=== PATIENT | male | born 1955 | race Caucasian/White ===

== ENCOUNTER 2022-02-01 11:48 | Inpatient (IN) ==
[2022-02-01 13:08] LABS: Basophils % 0.3 %; Eosinophils % 0.6 %; Hematocrit 20.5 % (37.5-50.1); Hemoglobin 7.1 g/dL (12.9-16.9); Immature Granulocytes % 0.9 % (0-4); Lymphocytes # 0.6 K/mcL (0.6-4.6); Lymphocytes % 17.3 %; Mean Corpuscular HGB Conc 34.6 g/dL (31.6-35.5); Mean Corpuscular Hemoglobin 31.1 pg (28.0-33.3); Mean Corpuscular Volume 89.9 fL (83.0-100.0); Mean Platelet Volume 11.1 fL (9.4-12.4); Monocytes # 0.4 K/mcL (0.0-1.3); Monocytes % 11.6 %; Neutrophils # 2.4 K/mcL (1.6-8.9); Platelet Count 142 K/mcL (140-400); Red Blood Count 2.28 M/mcL (4.19-5.50); Red Cell Distribution Width 15.2 % (11.5-14.5); Segmented Neutrophils % 69.3 %; White Blood Count 3.5 K/mcL (4.3-11.1)
[2022-02-01 13:58] LABS: Albumin 3.9 g/dL (3.5-5.7); Albumin/Globulin Ratio 1.6 (1.1-2.2); Bilirubin,Total 1.2 mg/dL (0.3-1.0); Calcium 8.2 mg/dL (8.6-10.3); Globulin 2.5 g/dL (2.4-3.5); Potassium 4.5 mEq/L (3.5-5.1); Total Protein 6.4 g/dL (6.4-8.9)
[2022-02-01 13:59] LABS: Adenovirus Not Detected (Not Detect); Bordetella Pertussis Not Detected (Not Detect); Chlamydophila pneumoniae Not Detected (Not Detect); Coronavirus 229E Not Detected (Not Detect); Coronavirus HKU1 Not Detected (Not Detect); Coronavirus NL63 Not Detected (Not Detect); Coronavirus OC43 Not Detected (Not Detect); Human Metapneumovirus Not Detected (Not Detect); Human Rhinovirus/Enterovirus Not Detected (Not Detect); Influenza A Subtype 2009 H1 Not Detected (Not Detect); Influenza B Not Detected (Not Detect); Mycoplasma pneumoniae Not Detected (Not Detect); Parainfluenza Virus 1 Not Detected (Not Detect); Parainfluenza Virus 2 Not Detected (Not Detect); Parainfluenza Virus 3 Not Detected (Not Detect); Parainfluenza Virus 4 Not Detected (Not Detect); Respiratory Syncytial Virus Not Detected (Not Detect)
[2022-02-01 14:00] LABS: SARS-CoV-2 DETECTED (Not Detect)
[2022-02-01 14:55] LABS: Bilirubin,Urine Negative (Negative); Blood,Urine Small (Negative); Clarity,Urine Clear (Clear); Color,Urine Colorless (Yellow); Glucose,Urine (UA) >=1000 mg/dL (Normal); Ketones,Urine Negative (Negative); Leukocyte Esterase,Urine Negative (Negative); Nitrite,Urine Negative (Negative); Protein,Urine 200 mg/dL (Neg-Trace); RBC,Urine 0-3 per hpf (0-3); Specific Gravity,Urine 1.022 (1.010-1.025); Urobilinogen,Urine Normal (Normal)
[2022-02-01] MEDS ORDERED: Acetaminophen 325 MG TABLET PO PRN (16:49)
[2022-02-01] MEDS ORDERED: Ondansetron 4 MG/2 ML VIAL IVP PRN (16:49)
[2022-02-01] MEDS ORDERED: Naloxone 0.4 MG/ML INJ IVP PRN (16:49)
[2022-02-01] MEDS ORDERED: 0.9 % Sodium Chloride 1,000 ML IVC SCH (17:00)
[2022-02-01] MEDS ORDERED: *HR* Dextrose 50 % in Water (Syg) 50 ML SYRINGE IVP PRN (17:04)
[2022-02-01] MEDS ORDERED: D5% in Water 1,000 ML IVC PRN (17:04)
[2022-02-01] MEDS ORDERED: Dextrose Gel 15 GM/37.5 ML TUBE PO PRN ×2 (17:04)
[2022-02-01] MEDS: Insulin LISPRO 300 UNITS/3 ML VIAL SUBQ SCH ×2 (18:37→20:59)
[2022-02-01] MEDS: Insulin NPH 100 UNIT/ML (x5UNIT) SUBQ SCH (20:58)
[2022-02-01] MEDS: Valsartan 80 MG TABLET PO SCH (21:02)
[2022-02-01] MEDS: Primidone 50 MG TABLET PO SCH (21:02)
[2022-02-01] MEDS: Gabapentin 400 MG CAPSULE PO SCH (21:02)
[2022-02-01] MEDS: allopurinoL 100 MG TABLET PO SCH (21:02)
[2022-02-01] MEDS: Azithromycin 500 MG in 0.9 % Sodium Chloride 250 ML IVPB SCH (21:13)
[2022-02-01] MEDS: cefTRIAXone 1,000 MG in 0.9 % Sodium Chloride 10 ML IVP SCH (21:14)
[2022-02-02] MEDS: Gabapentin 400 MG CAPSULE PO SCH ×2 (08:35→20:40)
[2022-02-02] MEDS: allopurinoL 100 MG TABLET PO SCH ×2 (08:35→20:39)
[2022-02-02] MEDS: Insulin NPH 100 UNIT/ML (x5UNIT) SUBQ SCH ×2 (08:35→22:08)
[2022-02-02] MEDS: Insulin LISPRO 300 UNITS/3 ML VIAL SUBQ SCH ×6 (08:37→21:49)
[2022-02-02 16:00] LABS: Hematocrit 20.6 % (37.5-50.1); Hemoglobin 6.9 g/dL (12.9-16.9); Mean Corpuscular HGB Conc 33.5 g/dL (31.6-35.5); Mean Corpuscular Hemoglobin 30.5 pg (28.0-33.3); Mean Corpuscular Volume 91.2 fL (83.0-100.0); Mean Platelet Volume 10.7 fL (9.4-12.4); Platelet Count 117 K/mcL (140-400); Red Blood Count 2.26 M/mcL (4.19-5.50); Red Cell Distribution Width 15.4 % (11.5-14.5); White Blood Count 3.4 K/mcL (4.3-11.1)
[2022-02-02 16:12] LABS: Albumin 3.7 g/dL (3.5-5.7); Albumin/Globulin Ratio 1.4 (1.1-2.2); Bilirubin,Direct 0.2 mg/dL (0.0-0.2); Bilirubin,Indirect 0.7 mg/dL (0.0-1.0); Bilirubin,Total 0.9 mg/dL (0.3-1.0); Calcium 7.9 mg/dL (8.6-10.3); Globulin 2.7 g/dL (2.4-3.5); Magnesium 1.4 mg/dL (1.6-2.6); Potassium 3.6 mEq/L (3.5-5.1); Total Protein 6.4 g/dL (6.4-8.9)
[2022-02-02] MEDS ORDERED: 0.9 % Sodium Chloride 250 ML IVC SCH (17:00)
[2022-02-02] MEDS ORDERED: 0.9 % Sodium Chloride 250 ML IVC ONE (17:25)
[2022-02-02] MEDS: cefTRIAXone 1,000 MG in 0.9 % Sodium Chloride 10 ML IVP SCH (18:20)
[2022-02-02] MEDS: Primidone 50 MG TABLET PO SCH (20:40)
[2022-02-02] MEDS: Valsartan 80 MG TABLET PO SCH (20:40)
[2022-02-02] MEDS: Azithromycin 500 MG in 0.9 % Sodium Chloride 250 ML IVPB SCH (20:41)
[2022-02-03 03:32] LABS: Hematocrit 22.8 % (37.5-50.1); Hemoglobin 7.7 g/dL (12.9-16.9); Mean Corpuscular HGB Conc 33.8 g/dL (31.6-35.5); Mean Corpuscular Hemoglobin 29.6 pg (28.0-33.3); Mean Corpuscular Volume 87.7 fL (83.0-100.0); Mean Platelet Volume 11.2 fL (9.4-12.4); Platelet Count 109 K/mcL (140-400); Red Cell Distribution Width 14.9 % (11.5-14.5); White Blood Count 3.3 K/mcL (4.3-11.1)
[2022-02-03 03:47] LABS: Calcium 7.7 mg/dL (8.6-10.3); Magnesium 1.7 mg/dL (1.6-2.6); Potassium 3.5 mEq/L (3.5-5.1)
[2022-02-03] MEDS: Gabapentin 400 MG CAPSULE PO SCH ×2 (08:34→21:52)
[2022-02-03] MEDS: Insulin NPH 100 UNIT/ML (x5UNIT) SUBQ SCH ×2 (08:35→21:51)
[2022-02-03] MEDS: allopurinoL 100 MG TABLET PO SCH ×2 (08:35→21:51)
[2022-02-03] MEDS: Insulin LISPRO 300 UNITS/3 ML VIAL SUBQ SCH ×6 (08:36→21:50)
[2022-02-03] MEDS ORDERED: Furosemide 20 MG/2 ML VIAL IVP ONE (11:23)
[2022-02-03] MEDS ORDERED: Remdesivir 200 MG in 0.9 % Sodium Chloride 100 ML IVPB ONE (13:00)
[2022-02-03] MEDS: cefTRIAXone 1,000 MG in 0.9 % Sodium Chloride 10 ML IVP SCH (18:07)
[2022-02-03] MEDS: Azithromycin 500 MG in 0.9 % Sodium Chloride 250 ML IVPB SCH (18:07)
[2022-02-03] MEDS: Valsartan 80 MG TABLET PO SCH (21:52)
[2022-02-03] MEDS: Primidone 50 MG TABLET PO SCH (21:52)
[2022-02-04 08:57] LABS: Hemoglobin 7.5 g/dL (12.9-16.9); Immature Platelets 13.2 % (1.1-6.1); Mean Corpuscular HGB Conc 34.1 g/dL (31.6-35.5); Mean Platelet Volume 11.8 fL (9.4-12.4); Monocytes # 0.2 K/mcL (0.0-1.3); Red Cell Distribution Width 14.9 % (11.5-14.5); White Blood Count 2.5 K/mcL (4.3-11.1)
[2022-02-04 09:14] LABS: Albumin 3.5 g/dL (3.5-5.7); Albumin/Globulin Ratio 1.5 (1.1-2.2); Bilirubin,Direct 0.1 mg/dL (0.0-0.2); Bilirubin,Indirect 0.5 mg/dL (0.0-1.0); Bilirubin,Total 0.6 mg/dL (0.3-1.0); Globulin 2.3 g/dL (2.4-3.5); Total Protein 5.8 g/dL (6.4-8.9)
[2022-02-04 09:17] LABS: Calcium 7.6 mg/dL (8.6-10.3); Potassium 3.8 mEq/L (3.5-5.1)
[2022-02-04] MEDS: Insulin LISPRO 300 UNITS/3 ML VIAL SUBQ SCH ×6 (09:32→21:54)
[2022-02-04 09:34] LABS: Platelet Count 84 K/mcL (140-400)
[2022-02-04 09:41] LABS: Lymphocytes # 0.5 K/mcL (0.6-4.6); Neutrophils # 1.9 K/mcL (1.6-8.9); Platelet Estimate Slight Decrease (Normal)
[2022-02-04] MEDS: allopurinoL 100 MG TABLET PO SCH ×2 (09:42→21:56)
[2022-02-04] MEDS: Gabapentin 400 MG CAPSULE PO SCH ×2 (09:42→21:55)
[2022-02-04] MEDS: Insulin NPH 100 UNIT/ML (x5UNIT) SUBQ SCH ×2 (09:43→21:55)
[2022-02-04] MEDS: Remdesivir 100 MG in 0.9 % Sodium Chloride 100 ML IVPB SCH (12:34)
[2022-02-04] MEDS: Azithromycin 500 MG in 0.9 % Sodium Chloride 250 ML IVPB SCH (18:01)
[2022-02-04] MEDS: cefTRIAXone 1,000 MG in 0.9 % Sodium Chloride 10 ML IVP SCH (18:01)
[2022-02-04] MEDS: Primidone 50 MG TABLET PO SCH (21:55)
[2022-02-04] MEDS: Valsartan 80 MG TABLET PO SCH (21:56)
[2022-02-05 03:50] LABS: Albumin 3.3 g/dL (3.5-5.7); Albumin/Globulin Ratio 1.4 (1.1-2.2); Bilirubin,Direct 0.1 mg/dL (0.0-0.2); Bilirubin,Indirect 0.3 mg/dL (0.0-1.0); Bilirubin,Total 0.4 mg/dL (0.3-1.0); Calcium 7.6 mg/dL (8.6-10.3); Globulin 2.4 g/dL (2.4-3.5); Magnesium 1.9 mg/dL (1.6-2.6); Potassium 3.9 mEq/L (3.5-5.1); Total Protein 5.7 g/dL (6.4-8.9)
[2022-02-05] MEDS: Insulin NPH 100 UNIT/ML (x5UNIT) SUBQ SCH ×2 (09:21→21:35)
[2022-02-05] MEDS: allopurinoL 100 MG TABLET PO SCH ×2 (09:21→21:35)
[2022-02-05] MEDS: Gabapentin 400 MG CAPSULE PO SCH ×2 (09:21→21:36)
[2022-02-05] MEDS: Insulin LISPRO 300 UNITS/3 ML VIAL SUBQ SCH ×6 (09:22→21:35)
[2022-02-05] MEDS: Remdesivir 100 MG in 0.9 % Sodium Chloride 100 ML IVPB SCH (12:11)
[2022-02-05] MEDS: Azithromycin 500 MG in 0.9 % Sodium Chloride 250 ML IVPB SCH (18:13)
[2022-02-05] MEDS: cefTRIAXone 1,000 MG in 0.9 % Sodium Chloride 10 ML IVP SCH (18:13)
[2022-02-05] MEDS: Primidone 50 MG TABLET PO SCH (21:35)
[2022-02-05] MEDS: Valsartan 80 MG TABLET PO SCH (21:35)
[2022-02-06 07:19] LABS: Hematocrit 23.1 % (37.5-50.1); Mean Corpuscular HGB Conc 34.6 g/dL (31.6-35.5); Mean Corpuscular Hemoglobin 29.9 pg (28.0-33.3); Mean Corpuscular Volume 86.2 fL (83.0-100.0); Mean Platelet Volume 11.4 fL (9.4-12.4); Platelet Count 101 K/mcL (140-400); Red Blood Count 2.68 M/mcL (4.19-5.50); White Blood Count 3.2 K/mcL (4.3-11.1)
[2022-02-06 07:33] LABS: Albumin 3.5 g/dL (3.5-5.7); Albumin/Globulin Ratio 1.6 (1.1-2.2); Bilirubin,Direct 0.2 mg/dL (0.0-0.2); Bilirubin,Indirect 0.5 mg/dL (0.0-1.0); Bilirubin,Total 0.7 mg/dL (0.3-1.0); Globulin 2.2 g/dL (2.4-3.5); Potassium 3.9 mEq/L (3.5-5.1); Total Protein 5.7 g/dL (6.4-8.9)
[2022-02-06] MEDS: allopurinoL 100 MG TABLET PO SCH ×2 (09:08→21:30)
[2022-02-06] MEDS: Insulin NPH 100 UNIT/ML (x5UNIT) SUBQ SCH ×2 (09:09→19:30)
[2022-02-06] MEDS: Insulin LISPRO 300 UNITS/3 ML VIAL SUBQ SCH ×6 (09:10→21:30)
[2022-02-06] MEDS: Gabapentin 400 MG CAPSULE PO SCH ×2 (09:10→21:30)
[2022-02-06] MEDS: Remdesivir 100 MG in 0.9 % Sodium Chloride 100 ML IVPB SCH (12:51)
[2022-02-06] MEDS: Valsartan 80 MG TABLET PO SCH (21:30)
[2022-02-06] MEDS: Primidone 50 MG TABLET PO SCH (21:30)
[2022-02-07] MEDS: Insulin NPH 100 UNIT/ML (x5UNIT) SUBQ SCH ×2 (08:30→21:31)
[2022-02-07] MEDS: Gabapentin 400 MG CAPSULE PO SCH ×2 (08:30→21:30)
[2022-02-07] MEDS: allopurinoL 100 MG TABLET PO SCH ×2 (08:30→21:30)
[2022-02-07] MEDS: Insulin LISPRO 300 UNITS/3 ML VIAL SUBQ SCH ×6 (08:31→21:31)
[2022-02-07] MEDS: Remdesivir 100 MG in 0.9 % Sodium Chloride 100 ML IVPB SCH (12:50)
[2022-02-07] MEDS: Primidone 50 MG TABLET PO SCH (21:28)
[2022-02-07] MEDS: Valsartan 80 MG TABLET PO SCH (21:30)
[2022-02-08] MEDS: allopurinoL 100 MG TABLET PO SCH (08:32)
[2022-02-08] MEDS: Gabapentin 400 MG CAPSULE PO SCH (08:32)
[2022-02-08] MEDS: Insulin NPH 100 UNIT/ML (x5UNIT) SUBQ SCH (08:33)
[2022-02-08] MEDS: Insulin LISPRO 300 UNITS/3 ML VIAL SUBQ SCH ×3 (08:39→12:12)
[2022-02-08 11:25] VITALS: BP 149/76; PULSE 66; TEMP 98.5; O2SAT 96
[2022-02-08 11:46] LABS: Hematocrit 25.1 % (37.5-50.1); Hemoglobin 8.8 g/dL (12.9-16.9); Mean Corpuscular HGB Conc 35.1 g/dL (31.6-35.5); Mean Corpuscular Volume 85.7 fL (83.0-100.0); Mean Platelet Volume 10.7 fL (9.4-12.4); Platelet Count 180 K/mcL (140-400); Red Blood Count 2.93 M/mcL (4.19-5.50)
[2022-02-08 11:48] LABS: White Blood Count 7.3 K/mcL (4.3-11.1)
[2022-02-08 12:05] LABS: Albumin 3.6 g/dL (3.5-5.7); Albumin/Globulin Ratio 1.6 (1.1-2.2); Bilirubin,Direct 0.2 mg/dL (0.0-0.2); Bilirubin,Indirect 0.5 mg/dL (0.0-1.0); Bilirubin,Total 0.7 mg/dL (0.3-1.0); Globulin 2.2 g/dL (2.4-3.5); Total Protein 5.8 g/dL (6.4-8.9)
== END 2022-02-08 15:42 | disposition home health service (06) | DRG 871 ==
LOC: EMEROOARM 11:48 → 2ANU 11:48 → SUATTDRO 17:26 → 2ANU 18:38 → SUATTDRO 02-04 13:40
PROVIDERS: ADMIT Family Medicine; ATTEND Internal Medicine

== ENCOUNTER 2022-03-12 20:18 | Inpatient (IN) ==
[2022-03-12 21:48] LABS: Mean Corpuscular HGB Conc 33.6 g/dL (31.6-35.5); Mean Corpuscular Hemoglobin 29.6 pg (28.0-33.3); Mean Corpuscular Volume 88.1 fL (83.0-100.0); Mean Platelet Volume 11.1 fL (9.4-12.4); Platelet Count 103 K/mcL (140-400); Red Blood Count 1.35 M/mcL (4.19-5.50); Red Cell Distribution Width 15.4 % (11.5-14.5); White Blood Count 1.5 K/mcL (4.3-11.1)
[2022-03-12 21:51] LABS: INR 1.4; Prothrombin Time 15.5 Seconds (9.4-12.1)
[2022-03-12 21:54] LABS: Activated Partial Thrombo Time 31.9 Seconds (26.0-36.0)
[2022-03-12 22:05] LABS: Potassium 3.8 mEq/L (3.5-5.1)
[2022-03-12 22:12] LABS: Troponin I 0.5 ng/mL (< 0.04)
[2022-03-12 22:13] LABS: Hematocrit 11.9 % (37.5-50.1)
[2022-03-12 22:46] LABS: Anisocytosis 1+ (Not Present); Eosinophils # 0.2 K/mcL (0.0-0.6); Large Platelets Present (Not Present); Lymphocytes # 0.3 K/mcL (0.6-4.6); Monocytes # 0.1 K/mcL (0.0-1.3); Platelet Estimate Decreased (Normal)
[2022-03-12] MEDS ORDERED: Acetaminophen 325 MG TABLET PO PRN (22:46)
[2022-03-12] MEDS ORDERED: Naloxone 0.4 MG/ML INJ IVP PRN (22:46)
[2022-03-12] MEDS ORDERED: 0.9 % Sodium Chloride 250 ML ONE (23:35)
[2022-03-13] MEDS: Calcium Gluconate 1gm/50mL 1 GM/50 ML BAG IVPB SCH ×2 (00:38→15:38)
[2022-03-13] MEDS: Ondansetron 4 MG/2 ML VIAL IVP PRN ×2 (02:32→22:21)
[2022-03-13] MEDS ORDERED: Furosemide 20 MG/2 ML VIAL IVP ONE (04:42)
[2022-03-13] MEDS ORDERED: Dextrose Gel 15 GM/37.5 ML TUBE PO PRN ×2 (04:57)
[2022-03-13] MEDS ORDERED: D5% in Water 1,000 ML IVC PRN (04:57)
[2022-03-13] MEDS ORDERED: *HR* Dextrose 50 % in Water (Syg) 50 ML SYRINGE IVP PRN (04:57)
[2022-03-13] MEDS ORDERED: Ipratropium/Albuterol Neb 3 ML IH PRN (05:25)
[2022-03-13] MEDS ORDERED: Insulin LISPRO 300 UNITS/3 ML VIAL SUBQ SCH (07:30)
[2022-03-13 08:24] LABS: Basophils % 0.5 %; Eosinophils # 0.2 K/mcL (0.0-0.6); Eosinophils % 10.7 %; Hematocrit 21.1 % (37.5-50.1); Immature Granulocytes % 1.5 % (0-4); Lymphocytes # 0.5 K/mcL (0.6-4.6); Lymphocytes % 23.8 %; Mean Corpuscular HGB Conc 34.1 g/dL (31.6-35.5); Mean Corpuscular Volume 85.1 fL (83.0-100.0); Mean Platelet Volume 11.7 fL (9.4-12.4); Monocytes # 0.2 K/mcL (0.0-1.3); Monocytes % 7.3 %; Neutrophils # 1.2 K/mcL (1.6-8.9); Red Blood Count 2.48 M/mcL (4.19-5.50); Red Cell Distribution Width 15.7 % (11.5-14.5); Segmented Neutrophils % 56.2 %; White Blood Count 2.1 K/mcL (4.3-11.1)
[2022-03-13 08:25] LABS: Hemoglobin 7.2 g/dL (12.9-16.9); Platelet Count 99 K/mcL (140-400)
[2022-03-13] MEDS: Multivit/Ca/Min/Fe/FA 1 TAB TABLET PO SCH (08:31)
[2022-03-13] MEDS: Insulin DETEMIR 100 UNIT/ML X5UNITS SUBQ SCH (08:31)
[2022-03-13 08:38] LABS: INR 1.2; Prothrombin Time 13.9 Seconds (9.4-12.1)
[2022-03-13 08:46] LABS: Albumin 3.6 g/dL (3.5-5.7); Albumin/Globulin Ratio 1.7 (1.1-2.2); Bilirubin,Total 1.5 mg/dL (0.3-1.0); Calcium 7.2 mg/dL (8.6-10.3); Globulin 2.1 g/dL (2.4-3.5); Magnesium 1.1 mg/dL (1.6-2.6); Phosphorous 3.4 mg/dL (2.7-4.5); Potassium 3.6 mEq/L (3.5-5.1); Total Protein 5.7 g/dL (6.4-8.9)
[2022-03-13] MEDS ORDERED: Aspirin Enteric Coated 81 MG Tablet PO SCH (09:00)
[2022-03-13 10:56] LABS: Estimated Average Glucose 183 mg/dl
[2022-03-13] MEDS: Insulin LISPRO 300 UNITS/3 ML VIAL SUBQ SCH ×3 (11:30→22:15)
[2022-03-13] MEDS ORDERED: Calcium Gluconate 1gm/50mL 1 GM/50 ML BAG IVPB SCH (11:30)
[2022-03-13 15:37] LABS: Hematocrit 22.5 % (37.5-50.1); Hemoglobin 7.8 g/dL (12.9-16.9)
[2022-03-13] MEDS: allopurinoL 100 MG TABLET PO SCH (22:21)
[2022-03-13] MEDS: Primidone 50 MG TABLET PO SCH (22:21)
[2022-03-13 23:41] LABS: Hematocrit 19.9 % (37.5-50.1); Hemoglobin 6.9 g/dL (12.9-16.9)
[2022-03-14] MEDS ORDERED: Ondansetron 4 MG/2 ML VIAL IVP ONE (01:19)
[2022-03-14] MEDS ORDERED: 0.9 % Sodium Chloride 500 ML ONE (01:23)
[2022-03-14] MEDS ORDERED: 0.9 % Sodium Chloride 500 ML IVC ONE (01:24)
[2022-03-14 07:58] LABS: Basophils % 0.5 %
[2022-03-14 08:00] LABS: Eosinophils # 0.1 K/mcL (0.0-0.6); Eosinophils % 6.8 %; Hemoglobin 7.7 g/dL (12.9-16.9); Lymphocytes # 0.5 K/mcL (0.6-4.6); Lymphocytes % 24.3 %; Mean Corpuscular Hemoglobin 29.8 pg (28.0-33.3); Mean Corpuscular Volume 85.3 fL (83.0-100.0); Monocytes # 0.2 K/mcL (0.0-1.3); Monocytes % 9.2 %; Neutrophils # 1.2 K/mcL (1.6-8.9); Red Blood Count 2.58 M/mcL (4.19-5.50); Red Cell Distribution Width 15.5 % (11.5-14.5); Segmented Neutrophils % 58.2 %; White Blood Count 2.1 K/mcL (4.3-11.1)
[2022-03-14 08:02] LABS: Platelet Count 90 K/mcL (140-400)
[2022-03-14] MEDS: Insulin DETEMIR 100 UNIT/ML X5UNITS SUBQ SCH (08:21)
[2022-03-14] MEDS: Insulin LISPRO 300 UNITS/3 ML VIAL SUBQ SCH ×4 (08:22→21:14)
[2022-03-14] MEDS: Multivit/Ca/Min/Fe/FA 1 TAB TABLET PO SCH (08:22)
[2022-03-14 08:23] LABS: Potassium 3.4 mEq/L (3.5-5.1)
[2022-03-14] MEDS: allopurinoL 100 MG TABLET PO SCH ×2 (08:23→20:17)
[2022-03-14 08:26] LABS: % Iron Saturation 73 % (20-55); Iron 140 mcg/dL (65-175); Transferrin 137 mg/dL (203-362)
[2022-03-14 08:47] LABS: Folate 5.5 ng/mL (3.0-16.0)
[2022-03-14] MEDS ORDERED: Lenalidomide [Revlimid] 10 MG Capsule PO SCH (09:00)
[2022-03-14 09:39] LABS: Ferritin > 1500 ng/mL (20-250)
[2022-03-14 15:51] LABS: Hematocrit 22.4 % (37.5-50.1); Hemoglobin 7.7 g/dL (12.9-16.9)
[2022-03-14] MEDS: Primidone 50 MG TABLET PO SCH (20:17)
[2022-03-15 04:23] LABS: Hemoglobin 7.6 g/dL (12.9-16.9); Monocytes # 0.3 K/mcL (0.0-1.3); Monocytes % 10.8 %; White Blood Count 2.5 K/mcL (4.3-11.1)
[2022-03-15 04:25] LABS: Basophils % 0.4 %; Eosinophils # 0.2 K/mcL (0.0-0.6); Eosinophils % 6.8 %; Hematocrit 22.1 % (37.5-50.1); Immature Granulocytes % 0.4 % (0-4); Lymphocytes # 0.9 K/mcL (0.6-4.6); Lymphocytes % 35.5 %; Mean Corpuscular HGB Conc 34.4 g/dL (31.6-35.5); Mean Corpuscular Hemoglobin 29.5 pg (28.0-33.3); Mean Corpuscular Volume 85.7 fL (83.0-100.0); Mean Platelet Volume 11.1 fL (9.4-12.4); Neutrophils # 1.2 K/mcL (1.6-8.9); Red Blood Count 2.58 M/mcL (4.19-5.50); Red Cell Distribution Width 15.5 % (11.5-14.5); Segmented Neutrophils % 46.1 %
[2022-03-15 04:26] LABS: Platelet Count 93 K/mcL (140-400); Platelet Estimate Decreased (Normal)
[2022-03-15 04:39] LABS: Calcium 7.1 mg/dL (8.6-10.3); Magnesium 1.7 mg/dL (1.6-2.6); Potassium 3.9 mEq/L (3.5-5.1)
[2022-03-15] MEDS: Multivit/Ca/Min/Fe/FA 1 TAB TABLET PO SCH (08:47)
[2022-03-15] MEDS: Insulin LISPRO 300 UNITS/3 ML VIAL SUBQ SCH ×2 (08:47→12:54)
[2022-03-15] MEDS: allopurinoL 100 MG TABLET PO SCH (08:47)
[2022-03-15] MEDS: Insulin DETEMIR 100 UNIT/ML X5UNITS SUBQ SCH (08:59)
[2022-03-15] MEDS ORDERED: GlipiZIDE 5 MG TABLET PO SCH (09:00)
[2022-03-15 11:45] VITALS: BP 151/74; TEMP 98.6
[2022-03-15 13:38] VITALS: PULSE 90; O2SAT 98
== END 2022-03-15 13:52 | disposition home health service (06) | DRG 811 ==
LOC: EMEROOARM 20:18 → 2NNU 20:18 → SUATTDRO 03-13 00:06 → 2NNU 03-13 01:39
PROVIDERS: ADMIT Internal Medicine; ATTEND Family Medicine

== ENCOUNTER 2022-04-19 15:10 | Observation (INO) ==
[2022-04-19] MEDS ORDERED: 0.9 % Sodium Chloride 250 ML ONE (18:01)
[2022-04-19] MEDS ORDERED: *HR* Dextrose 50 % in Water (Syg) 50 ML SYRINGE IVP PRN (18:13)
[2022-04-19] MEDS ORDERED: D5% in Water 1,000 ML IVC PRN (18:13)
[2022-04-19] MEDS ORDERED: Dextrose Gel 15 GM/37.5 ML TUBE PO PRN ×2 (18:13)
[2022-04-19] MEDS ORDERED: Naloxone 0.4 MG/ML INJ IVP PRN (18:16)
[2022-04-19] MEDS ORDERED: Melatonin 3 MG TABLET PO PRN (18:16)
[2022-04-19] MEDS ORDERED: Acetaminophen 325 MG TABLET PO PRN (18:16)
[2022-04-19] MEDS ORDERED: Ondansetron 4 MG/2 ML VIAL IVP PRN (18:16)
[2022-04-19] MEDS: Insulin LISPRO 300 UNITS/3 ML VIAL SUBQ SCH (20:24)
[2022-04-19] MEDS: allopurinoL 100 MG TABLET PO SCH (20:26)
[2022-04-19] MEDS ORDERED: Insulin LISPRO 300 UNITS/3 ML VIAL SUBQ SCH (21:00)
[2022-04-19] MEDS ORDERED: Primidone 50 MG TABLET PO SCH (21:00)
[2022-04-19] MEDS ORDERED: Valsartan 80 MG TABLET PO SCH (21:00)
[2022-04-20] MEDS ORDERED: 0.9 % Sodium Chloride 250 ML ONE ×2 (00:32→05:23)
[2022-04-20 05:00] LABS: Hemoglobin 6.6 g/dL (12.9-16.9); Mean Corpuscular Volume 84.4 fL (83.0-100.0); Red Cell Distribution Width 13.8 % (11.5-14.5)
[2022-04-20 05:01] LABS: Hematocrit 18.9 % (37.5-50.1); Immature Platelets 11.1 % (1.1-6.1); Mean Corpuscular HGB Conc 34.9 g/dL (31.6-35.5); Mean Corpuscular Hemoglobin 29.5 pg (28.0-33.3); Mean Platelet Volume 11.1 fL (9.4-12.4); Red Blood Count 2.24 M/mcL (4.19-5.50); White Blood Count 2.1 K/mcL (4.3-11.1)
[2022-04-20 05:08] LABS: INR 1.3
[2022-04-20 05:18] LABS: Potassium 3.5 mEq/L (3.5-5.1)
[2022-04-20] MEDS ORDERED: *HR* Heparin 5,000 UNIT/ML VIAL ONE ×2 (06:58→11:48)
[2022-04-20] MEDS: allopurinoL 100 MG TABLET PO SCH (08:49)
[2022-04-20] MEDS: Insulin LISPRO 300 UNITS/3 ML VIAL SUBQ SCH ×2 (08:51→14:30)
[2022-04-20] MEDS ORDERED: Heparin 1,000 UNITS/500 mL 500 ML ONE (11:46)
[2022-04-20] MEDS ORDERED: *HR* FentaNYL (PF) 100 MCG/2 ML VIAL ONE (11:58)
[2022-04-20] MEDS ORDERED: Lidocaine -MPF 2% 2 ML VIAL ONE (11:58)
[2022-04-20] MEDS ORDERED: *HR* Midazolam HCl 2 MG/2 ML VIAL ONE (11:58)
[2022-04-20 14:26] VITALS: TEMP 97.7
[2022-04-20 15:26] VITALS: PULSE 54; O2SAT 100
[2022-04-20 16:07] VITALS: BP 164/76
== END 2022-04-20 18:12 | disposition home or self-care (01) ==
LOC: 3BNU → SUATTDRO 15:48
PROVIDERS: ADMIT Internal Medicine; ATTEND Registered Nurse

== ENCOUNTER 2022-05-05 11:21 | Observation (INO) ==
[2022-05-05 13:49] LABS: Immature Granulocytes % 0.3 % (0-4); Monocytes % 7.4 %
[2022-05-05 13:51] LABS: Basophils % 0.3 %; Eosinophils % 0.6 %; Hematocrit 16.6 % (37.5-50.1); Immature Platelets 8.4 % (1.1-6.1); Lymphocytes # 1.1 K/mcL (0.6-4.6); Lymphocytes % 34.6 %; Mean Corpuscular HGB Conc 35.5 g/dL (31.6-35.5); Mean Corpuscular Hemoglobin 29.8 pg (28.0-33.3); Mean Corpuscular Volume 83.8 fL (83.0-100.0); Mean Platelet Volume 11.1 fL (9.4-12.4); Monocytes # 0.2 K/mcL (0.0-1.3); Neutrophils # 1.8 K/mcL (1.6-8.9); Red Blood Count 1.98 M/mcL (4.19-5.50); Red Cell Distribution Width 13.4 % (11.5-14.5); Segmented Neutrophils % 56.8 %; White Blood Count 3.1 K/mcL (4.3-11.1)
[2022-05-05 14:08] LABS: Calcium 9.3 mg/dL (8.6-10.3); Potassium 4.3 mEq/L (3.5-5.1)
[2022-05-05 14:12] LABS: Platelet Count 42 K/mcL (140-400)
[2022-05-05 14:15] LABS: Hemoglobin 5.9 g/dL (12.9-16.9)
[2022-05-05 14:19] LABS: Platelet Estimate Marked Decrease (Normal)
[2022-05-05 14:20] LABS: Anisocytosis 1+ (Not Present); Microcytosis Present (Not Present)
[2022-05-05] MEDS ORDERED: 0.9 % Sodium Chloride 250 ML ONE ×2 (15:17→19:56)
[2022-05-05] MEDS ORDERED: Ondansetron ODT 4 MG TAB.RAPDIS SL PRN (15:27)
[2022-05-05] MEDS ORDERED: MOM Conc 10 ML UD.LIQ PO PRN (15:27)
[2022-05-05] MEDS ORDERED: Mag Hydrox/Al Hydrox/Simeth 30 ML UDC PO PRN (15:27)
[2022-05-05] MEDS ORDERED: Naloxone 0.4 MG/ML INJ IVP PRN (15:27)
[2022-05-05] MEDS ORDERED: Melatonin 3 MG TABLET PO PRN (15:27)
[2022-05-05] MEDS ORDERED: Dextrose Gel 15 GM/37.5 ML TUBE PO PRN ×2 (15:35)
[2022-05-05] MEDS ORDERED: *HR* Dextrose 50 % in Water (Syg) 50 ML SYRINGE IVP PRN (15:35)
[2022-05-05] MEDS ORDERED: D5% in Water 1,000 ML IVC PRN (15:35)
[2022-05-05] MEDS ORDERED: *HR* Alteplase (Cathflo) 2 MG VIAL IVP ONE (15:40)
[2022-05-05] MEDS: Insulin LISPRO 300 UNITS/3 ML VIAL SUBQ SCH (18:18)
[2022-05-05] MEDS ORDERED: Valsartan 80 MG TABLET PO SCH (21:00)
[2022-05-05] MEDS ORDERED: Insulin LISPRO 300 UNITS/3 ML VIAL SUBQ SCH (21:00)
[2022-05-05] MEDS ORDERED: Primidone 50 MG TABLET PO SCH (21:00)
[2022-05-06] MEDS: Insulin LISPRO 300 UNITS/3 ML VIAL SUBQ SCH (08:14)
[2022-05-06] MEDS ORDERED: *HR* Alteplase (Cathflo) 2 MG VIAL IVP ONE (08:19)
[2022-05-06 09:06] LABS: Monocytes % 6.9 %; Red Cell Distribution Width 13.7 % (11.5-14.5)
[2022-05-06 09:08] LABS: Basophils % 0.4 %; Eosinophils % 1.4 %; Hematocrit 22.8 % (37.5-50.1); Immature Granulocytes % 0.4 % (0-4); Immature Platelets 10.2 % (1.1-6.1); Lymphocytes # 1.2 K/mcL (0.6-4.6); Lymphocytes % 41.7 %; Mean Corpuscular HGB Conc 35.1 g/dL (31.6-35.5); Mean Corpuscular Volume 85.4 fL (83.0-100.0); Monocytes # 0.2 K/mcL (0.0-1.3); Neutrophils # 1.4 K/mcL (1.6-8.9); Nucleated Red Blood Cells 0.7 /100 WBC (0); Red Blood Count 2.67 M/mcL (4.19-5.50); Segmented Neutrophils % 49.2 %; White Blood Count 2.8 K/mcL (4.3-11.1)
[2022-05-06 09:09] LABS: Platelet Count 34 K/mcL (140-400)
[2022-05-06 09:22] LABS: Calcium 8.5 mg/dL (8.6-10.3); Potassium 3.4 mEq/L (3.5-5.1)
[2022-05-06 10:17] VITALS: BP 152/65; PULSE 71; TEMP 98.3; O2SAT 96
== END 2022-05-06 13:04 | disposition home or self-care (01) ==
LOC: 3ANU 11:21 → EMEROOARM 11:21 → SUATTDRO 14:58 → 3ANU 16:08
PROVIDERS: ADMIT Hospitalist; ATTEND Registered Nurse